=== PATIENT | female | born 1965 | race Caucasian/White ===

== ENCOUNTER 2022-12-13 16:39 | Emergency (ER) | payer OTHER ==
[2022-12-13 16:52] VITALS: BP 120/73; PULSE 85; RESP 18; TEMP 97.9; BMI 27.4
[2022-12-13] MEDS ORDERED: ACETAMINOPHEN 500 MG TABLET (FP) PO ONE (17:26)
[2022-12-13] MEDS ORDERED: METHOCARBAMOL 500 MG TABLET PO ONE (17:26)
[2022-12-13] MEDS ORDERED: METHOCARBAMOL 500 MG TABLET ONE (17:37)
[2022-12-13] MEDS ORDERED: ACETAMINOPHEN 500 MG TABLET (FP) ONE (17:37)
== END 2022-12-13 19:16 | disposition home or self-care (01) ==
LOC: JERFT 16:39
DX: M25.512 Pain in left shoulder (principal)
CPT/HCPCS: 73030-TC-LT-FY; 99283-25